=== PATIENT | male | born 1935 | race Caucasian/White ===

== ENCOUNTER 2024-06-17 09:25 | Day surgery (SDC) | payer MEDICARE, BC, SELFPAY ==
[2024-06-17] VITALS (9 sets, daily range): BP systolic 146–181; BP diastolic 68–91; PULSE 60–70; RESP 11–20; TEMP 36.7–36.9; O2SAT 94–99; BMI 28.3
--- NOTE | 2024-06-17 10:09 | SUR.PREOP ---
called dr Hall's office regarding pts last progress notes, test, or patients last visit notes. spoke to isaiah and stated fax will be sent over shortly. pt last visit is 05/23/24
--- NOTE | 2024-06-17 10:16 | SUR.PREOP ---
obtained consent from granddaughter Karissa whom brought pt to the apt today. pt has allowed for staff to take pt hx and consent. pt has dementia and is unable to sign consent due to pt only being aware to self and family. pt knows what procedure is being done and why. pt not aware to time, year and who is president. Karissa stated they are currently in the process of assigning, next of kin and power of research attorney.
[2024-06-17] MEDS: MIDAZOLAM INJ 1 MG/ML VIAL 2 ML (ASD USE ONLY) 2 MG IV (10:53)
[2024-06-17] MEDS: fentaNYL CIT INJ 50 mCg/ML AMP 2ML (ASD USE ONLY) IV (10:54)
== END 2024-06-17 12:20 | disposition home or self-care (01) ==
PROVIDERS: PCP Internal Medicine; Referring Provider Specialist; Visit Provider Specialist
PROC: (CPT 43239; principal; 2024-06-17 10:30)
DX: K21.00 Gastro-esophageal reflux disease with esophagitis, without bleeding (principal); K22.10 Ulcer of esophagus without bleeding; K22.2 Esophageal obstruction; K29.50 Unspecified chronic gastritis without bleeding; K31.7 Polyp of stomach and duodenum
CPT/HCPCS: 43248; 43239; C1769; J2250; J3010